=== PATIENT | male | born 1975 | race African-American/Black ===

== ENCOUNTER 2018-08-08 11:14 | Emergency (ER) | payer OTHER ==
[~2018-08-08] VITALS: Ht 172.7 cm; Wt 83.9 kg
[2018-08-08 11:25] VITALS: BP 141/95
[2018-08-08] MEDS ORDERED: CYCLOBENZAPRINE10 MG ORAL (11:31)
[2018-08-08] MEDS ORDERED: ADVAIR HFA 230-12 GM INH (11:31)
[2018-08-08] MEDS ORDERED: NORCO 5-325 TA1 EACH ORAL (11:31)
[2018-08-08] MEDS ORDERED: DULERA 200 MCG/13 GM IH (11:31)
[2018-08-08] MEDS ORDERED: ALBUTEROL2.5 MG/3 M INH (11:31)
[2018-08-08] MEDS ORDERED: PREDNISONE10 M2 PO (11:31)
[2018-08-08] MEDS ORDERED: LORATADINE10 M1 PO (11:31)
[2018-08-08] MEDS ORDERED: TESSALON PERLE100 MG ORAL (11:32)
--- NOTE | 2018-08-08 11:33 | Emergency Room Report ---
History of Present Illness General Chief Complaint: Flu Like Symptoms Source: Patient Present Illness HPI Pt. requesting Hycodan Cough Syrup. PMD refused so he is here. He has Albuterol inhaler. No fever, occasional nonprod. cough. This patient c/o 2-3 days of viral URI symptoms including sore throat, rhinitis , nasal congestion, non productive cough. Malaise, myalgias, possibly tactile fever. The patient has no vomiting, chest pain or SOB. No travel history, leg pain/swelling. Allergies: Coded Allergies: PENICILLINS (Verified Allergy, Unknown, 08/08/18) Nursing Documentation-PMH Hx Hypertension: Yes Hx Asthma: Yes Review of Systems Constitutional: Reports: no symptoms Eye: Reports: no symptoms ENT: Reports: no symptoms Respiratory: Reports: no symptoms Cardiovascular: Reports: no symptoms Gastrointestinal: Reports: no symptoms Genitourinary: Reports: no symptoms Musculoskeletal: Reports: no symptoms Skin: Reports: no symptoms Psychiatric: Reports: no symptoms Neurological: Reports: no symptoms Endocrine: Reports: no symptoms Hematologic/Lymphatic: Reports: no symptoms Allergic: Reports: no symptoms All Other Systems: negative except mentioned in HPI Physical Exam Vital Signs Date Time Temp Pulse Resp B/P (MAP) Pulse Ox O2 Delivery O2 Flow Rate FiO2 08/08/18 11:17 98.4 70 18 141/95 97 Room Air 98.4 Sp02 EP Interpretation: reviewed, normal General Appearance: normal inspection, well appearing, no apparent distress, alert, GCS 15, non-toxic Head: normocephalic, atraumatic Eyes: bilateral eye normal inspection, bilateral eye PERRL, bilateral eye EOMI ENT: normal ENT inspection, hearing grossly normal, normal pharynx, no angioedema, normal voice, moist mucus membranes Neck: normal inspection, full range of motion, supple, no meningismus, no bony tend Respiratory: normal inspection, lungs clear, normal breath sounds, no rhonchi, no respiratory distress, no retraction, no accessory muscle use, no wheezing Cardiovascular #1: normal inspection, regular rate, rhythm, no edema Gastrointestinal: normal inspection, normal bowel sounds, non tender, soft, no mass, non-distended Musculoskeletal: gait/station normal, normal range of motion Neurologic: normal inspection, alert, oriented x3, responsive, motor strength/ tone normal Psychiatric: normal inspection, judgement/insight normal, memory normal Suicide Risk Assessment: Suicidal Ideation: No Had intent to initiate attempt: No Pt's plan for suicide attempt: No Has means to complete attempt: No Skin: normal inspection, normal color, no rash, warm/dry Medical Decision Making Diagnostic Impression: Primary Impression: Viral URI ER Course I did not hear patient cough even once. Lungs clear. Repeatedly informed I do not prescribe addictive cough meds; offered Tessalon perles Reluctantly accepted. Last Vital Signs Date Time Temp Pulse Resp B/P (MAP) Pulse Ox O2 Delivery O2 Flow Rate FiO2 08/08/18 11:25 70 18 Room Air 08/08/18 11:25 98.4 141/95 97 98.4 Status: unchanged Disposition: HOME, SELF-CARE Condition: Stable Scripts Benzonatate* (TESSALON PERLE*) 100 Mg Capsule 200 MG ORAL THREE TIMES A DAY, #30 PERLE Prov: Jacques Person M.D. 08/08/18 Patient Instructions: Cough, Adult, [id number] Jacques Person M.D. Aug 08, 2018 11:33
[2018-08-08 11:59] VITALS: BP 141/95
== END 2018-08-08 12:00 | disposition home or self-care (01) ==
LOC: EMR 11:35
DX: J06.9 Acute upper respiratory infection, unspecified (principal); B34.9 Viral infection, unspecified; J45.909 Unspecified asthma, uncomplicated; I10 Essential (primary) hypertension; Z88.0 Allergy status to penicillin
CPT/HCPCS: 99282

== ENCOUNTER 2018-12-11 21:36 | Emergency (ER) | payer OTHER ==
[~2018-12-11] VITALS: Ht 172.7 cm; Wt 83.9 kg
[~2018-12-11 21:36] MED LIST: ADVAIR HFA 230-12 GM INH; ALBUTEROL2.5 MG/3 M INH; CYCLOBENZAPRINE10 MG ORAL; DULERA 200 MCG/13 GM IH; LORATADINE10 M1 PO; NORCO 5-325 TA1 EACH ORAL; PREDNISONE10 M2 PO; TESSALON PERLE100 MG ORAL
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
[2018-12-11 21:55] VITALS: BP 133/83
[2018-12-11] MEDS ORDERED: IBUPROFEN600 MG ORAL (21:58)
[2018-12-11] MEDS ORDERED: DOXYCYCLINE MO100 MG ORAL (21:58)
[2018-12-11] MEDS ORDERED: Bacitracin Oint UD TOPIC ONE (22:00)
[2018-12-11] MEDS ORDERED: Tetanus/Diptheria/Pertussis Vaccine 0.5ml Syr IM ONE (22:00)
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
--- NOTE | 2018-12-11 22:33 | NUR ---
ED Nurse Note: Pt is DC per ERMD orders. pt is alert and oriented times 4 and understands all DC notes and instructions. pt is instructed to follow up with main provider as soon as possible. pt is instructed to return to ER if any variance in condition. pt left with all belongings as well as DC notes and instructions. pt vital signs, condition and status is reported to ERMD prior to DC. pt is stable for DC. pt vital signs is stable. pt is able to ambulate. pt ID band removed.
[2018-12-11 22:34] VITALS: BP 130/80
== END 2018-12-11 22:25 | disposition home or self-care (01) ==
LOC: EMR 21:57
DX: S41.132A Puncture wound without foreign body of left upper arm, initial encounter (principal); Y04.2XXA Assault by strike against or bumped into by another person, initial encounter; Y92.9 Unspecified place or not applicable; Z23 Encounter for immunization; Z88.0 Allergy status to penicillin; I10 Essential (primary) hypertension; J45.909 Unspecified asthma, uncomplicated
CPT/HCPCS: 90471; 90715; 99283